=== PATIENT | female | born 1990 | race Caucasian/White ===

== ENCOUNTER 2018-11-02 12:56 | Inpatient (IN) | payer MEDICAID ==
[2018-11-02] MEDS ORDERED: Lactated Ringer's 1,000 ML IV ONE ×3 (13:40→16:35)
[2018-11-02 13:48] VITALS: BMI 27.0
[2018-11-02 14:21] LABS: BASO % 0.1 % (0.0-2.0); EOS % 0.1 % (0.0-4.0); HEMOGLOBIN 12.2 g/dL (12.0-16.0); LYMPH # 1.6 K/uL (1.0-4.3); LYMPH % 12.2 % (20.0-40.0); MEAN CELL VOLUME 92.1 fl (81.0-99.0); MEAN CORPUSCULAR HGB CONC 33.7 g/dL (33.0-37.0); MEAN PLATELET VOLUME 9.5 fl (7.2-11.7); MONO # 0.7 K/uL (0.0-0.8); MONO % 4.9 % (0.0-10.0); NEUT # 11.1 K/uL (1.8-7.0); NEUT % 82.7 % (50.0-75.0); NRBC % 0.1 % (0.0-0.0); RBC 3.92 Mil/uL (3.80-5.20); WHITE BLOOD COUNT 13.4 K/uL (4.8-10.8)
--- NOTE | 2018-11-02 14:43 | OBHP ---
Datetime: 11/02/2018 14:25 IP Adm Impression: Term, intrauterine ; Ruptured Membranes IP Admit Plan: Admit to unit; Initiate labor protocol Admit Comment, IP Provider: Pt is a 28 y/o at EGA of 40.6week by LMP of 01/20/18, DM 10/27/18 . Patient presented for SROM at 11am and uterine contractions. Denies vaginal bleeding. Reports good movement. Denies headaches, blurry vision, chest pain, SOB, dizziness, nausea, vomiting, diarr hea, constipation or dysuria. Provider: Dr. Jacob Smith PMHx: Denies, No DM or HTN Meds: PNV FMHx: Denies Allergies: NKDA SurgHx: Denies SOCHx: Denies Smoking,Tobacco,Drugs use OBGYN: No complications with , Denies STDs, Pap last year reports normlal Labs: Unknown requested records, release form signed Assessment Pt is a 28 y/o at EGA of 40.6week by LMP of 01/20/18, DM 10/27/18. Patient presented for SR OM at 11am and uterine contractions. Plan: -Admit to L and D -Initiate labor protocol -Monitor contractions, VS -Monitor FHR tracing 140's, moderate variability, 15x15 accelerations, no decels -IVF hydration -CBC w/ diff, type and screen, RPR, HIV -Regular diet -Bimanual 2cm, 90% effaced, -3 station -Bedside U/S vertex presentation -Begin Nitrous oxide pain control Case reviewed and discussed with attending Vee Albright PGY1 OB Hospitalist Addendum: Pt seen by me. Agree w/ above. 28 yo at 40+6 wks in labor. VE /-2 at 1324. GBS positive. PCN for GBS prohylaxis. FHT reassuring. (ES) Extremities - PN: Normal Abdomen - PN: Normal Lungs - PN: Normal Heart - PN: Normal HEENT - PN: Normal General - PN: Normal Presentation-Admit: Vertex FHR - Baseline A Provider: 140's Membranes, Provider: Ruptured Comments, ACOG Physical Exam: GEN: Lying in bed uncomfortable HEENT: NCAT CARD: RRR + S1S2 RESP: CTA, no wheezing, rales or rhonchi GI: Gravid, + BS, no tenderness to palpation EXT: no edema, calves nontender Monitor FHR tracing 140's, moderate variability, 15x15 accelerations, no decels Bimanual 2cm, 90% eff, -3 Bedside U/S- vertex presentation Vital Signs Provider: Reviewed; Within Normal Limits IP Chief Complaint: Uterine contractions; Suspected ruptured membranes NICHD Variability Prov Fetus A: Moderate 6-25bpm FHR Category Provider Fetus A: Category I NICHD Decel Fetus A IP Provider: None Dilatation, Provider: 2 Effacement, Provider: 90 Station, Provider: -3 Datetime: 11/02/2018 13:46 NICHD Accel Fetus A IP Provider: [id number]
[2018-11-02] MEDS ORDERED: Penicillin G 5 Million Unit Vial IVPB ONE ×2 (15:07→19:14)
[2018-11-02] MEDS ORDERED: Fentanyl/Bupivacaine HCl 250 ML EPI ONE (15:32)
[2018-11-02 17:56] VITALS: RESP 18; O2SAT 100
[2018-11-02] MEDS ORDERED: Penicillin G Potassium 2 MU in Sodium Chloride 0.9% 50 ML IVPB SCH (19:00)
[2018-11-02] MEDS ORDERED: Lidocaine 1% MPF (30 ml) Inj ONE (20:25)
[2018-11-02] MEDS ORDERED: Oxytocin 30 UNIT 30 UNITS/500 ML BAG IV ONE ×4 (20:26→21:41)
[2018-11-02] MEDS ORDERED: Oxycodone/Acetaminophen 5/325 mg Tab PO PRN ×2 (21:41)
[2018-11-02] MEDS ORDERED: Benzocaine/Menthol SPRAY TOP PRN (21:41)
[2018-11-03] MEDS ORDERED: Benzocaine/Menthol SPRAY TOP PRN (00:10)
[2018-11-03] MEDS ORDERED: Oxycodone/Acetaminophen 5/325 mg Tab PO PRN ×2 (00:10)
[2018-11-03 06:32] LABS: BASO % 0.1 % (0.0-2.0); EOS % 0.1 % (0.0-4.0); HEMOGLOBIN 11.3 g/dL (12.0-16.0); LYMPH # 2.1 K/uL (1.0-4.3); LYMPH % 10.8 % (20.0-40.0); MEAN CELL VOLUME 91.4 fl (81.0-99.0); MEAN CORPUSCULAR HEMOGLOBIN 31.5 pg (27.0-31.0); MEAN CORPUSCULAR HGB CONC 34.5 g/dL (33.0-37.0); MEAN PLATELET VOLUME 9.4 fl (7.2-11.7); MONO # 1.7 K/uL (0.0-0.8); MONO % 8.6 % (0.0-10.0); NEUT # 15.8 K/uL (1.8-7.0); NEUT % 80.4 % (50.0-75.0); RBC 3.58 Mil/uL (3.80-5.20); WHITE BLOOD COUNT 19.7 K/uL (4.8-10.8)
--- NOTE | 2018-11-04 07:43 | OBPPN ---
Datetime: 11/04/2018 05:44 PP Pain Prov: Within normal limits PP Nausea Prov: Denies PP Flatus Prov: Yes PP BM Prov: Yes PP Heart Prov: Normal PP Lungs Prov: Normal PP Abdomen/Uterus Prov: Normal PP Lochia Prov: Normal PP Extremities Prov: Normal PP Impression Prov: Normal progression PP Plan Prov: Continue present management; Discharge PP Progress Note Prov: 28 y/o PPD 2 s/p was examined this AM. Pain continues to betolerabl e with med regimen. Patient continues +. Pt is ambulating w/o difficulty. Toterating reg ular PO diet w/o n or v. +Flatus, +BM. Denies f/c/cp, sob, lightheadedness or dizziness. PE: Cardio: s1s2, RRR Lungs: cta b/l, no wheeze Abd: BS +, appropriate tenderness, no rigidity, no guarding Ext: calves nontender Neuro: A _ o x 3 A/P: 28 y/o , clinically stable, PPD 2 s/p -Continue to encourage -Continue to encourage ambulation -Pain med regimen as needed -DC 11/04/2018 today Case discussed with attending -Chandni Florez, PGY-1 OB Hospitlaist Addendum: Pt seen and examined by me. Agree w/ above. PPD2 s/p , doing well, b reast feeding. Discharge home today. (ES) IP PP Procedures: None Vital Signs Provider PP: Reviewed; Within Normal Limits
--- NOTE | 2018-11-04 11:15 | OBDCSUM ---
Datetime: 11/04/2018 03:36 Discharged to, Provider: Home Follow up at, Provider: Your Doctor Disch Instr Activity: May be up to bathroom; May be up for meals; May Shower Disch Instr Diet: Regular Discharge Instructions, Provider: Routine instructions given Discharge Diagnosis, Provider: Term Delivered Discharge Time: 11/04/2018 10:00 Follow up in weeks, Provider: 6 weeks for visit _ 2-3 days for appt Disch Referrals: None Contraception discussed, Prov: Yes Disch Activity Restrictions: No lifting; No driving; Minimize walking; Minimize stair-climbing; No s exual activity; Nothing in vagina - Lucien, tampons, douche Discharge Comment, Provider: -Continue to _ take vitamins daily. -Please ensure your sees the [facility] [employer] Operator in 2-3 days. -It is important to eat a well-balanced diet and drink plenty of fluids. -If you develop increased vaginal bleeding, go immediately to the ER. -Avoid sexual activity, douching or tampons until your 6 week visit. Contraception after Delivery: Undecided
[2018-11-04 20:30] VITALS: BP 103/65; PULSE 77; TEMP 98.6
== END 2018-11-04 13:12 | disposition home or self-care (01) | DRG 373 ==
LOC: H.EROB2 12:56 → H.L&D 13:42 → H.OB/GYN 11-03
PROVIDERS: ADMIT Obstetrics & Gynecology; ATTEND Obstetrics & Gynecology
PROC: 10E0XZZ Delivery of Products of Conception, External Approach (ICD-10-PCS; principal; 2018-11-02)
PROC: 4A1HXCZ Monitoring of Products of Conception, Cardiac Rate, External Approach (ICD-10-PCS; 2018-11-02)
DX: O76 Abnormality in fetal heart rate and rhythm complicating labor and delivery (principal); O77.0 Labor and delivery complicated by meconium in amniotic fluid; O69.81X0 Labor and delivery complicated by cord around neck, without compression, not applicable or unspecified; Z37.0 Single live birth; Z3A.40 40 weeks gestation of pregnancy